=== PATIENT | female | born 1935 | race Caucasian/White ===

== ENCOUNTER 2016-11-22 19:28 | Inpatient (IN) | payer MEDICARE ==
[~2016-11-22] VITALS: Ht 167.6 cm; Wt 65.8 kg
[~2016-11-22 19:28] MED LIST: ALLA266C2 TP; DIVA500T2 PO; DOCU-25 PO; LEVO75TA7 PO; MEGE400O PO; MIRT15TA PO; PANT40TA2 PO; PARO10TA26 PO
--- NOTE | 2016-11-22 19:50 | NUR ---
PT PA FROM [facility] HERE FOR "MAKING FALSE ACCUSATIONS AND STATING I WANT TO " PT AOX3 RR EVEN AND UNLABORED. NO SOB NOTED. NAD NOTED. NO NVD AT THIS TIME. PT GOWNED AND PLACED ON MONITOR WAITING FOR MD BURKETT.
--- NOTE | 2016-11-22 20:10 | NUR ---
LAB AT BEDSIDE FOR BLOOD DRAW
[2016-11-22 20:15] LABS: BASOPHILS % (AUTO) 0.7 % (0.0-2.0); EOSINOPHILS # (AUTO) 0.1 /CMM (0.0-0.7); EOSINOPHILS % (AUTO) 1.7 % (0.0-6.0); HEMATOCRIT 39 % (33-45); HEMOGLOBIN 13.6 g/dL (11.5-14.8); LYMPHOCYTES # (AUTO) 3.7 /CMM (0.8-4.8); LYMPHOCYTES % (AUTO) 51.5 % (20.0-44.0); MEAN CORPUSCULAR HEMOGLOBIN 35 PG (26.0-33.0); MEAN CORPUSCULAR HGB CONC 35 g/dl (31.0-36.0); MEAN CORPUSCULAR VOLUME 100 fL (82-100); MONOCYTES # (AUTO) 0.7 /CMM (0.1-1.30); MONOCYTES % (AUTO) 9.2 % (2.0-12.0); NEUTROPHILS # (AUTO) 2.6 /CMM (1.8-8.9); NEUTROPHILS % (AUTO) 36.9 % (43.0-81.0); PLATELET COUNT (AUTO) 192 /CMM (150-450); RDW COEFFICIENT OF VARIATION 11.4 (11.5-15.0); RED BLOOD CELL COUNT(AUTO) 3.91 MIL/uL (4.0-5.2); WHITE BLOOD COUNT (AUTO) 7.1 K/uL (4.3-11.0)
--- NOTE | 2016-11-22 20:23 | NUR ---
URINE COLLECTED. SENT TO LAB
[2016-11-22 20:31] LABS: ACETAMINOPHEN 5 ug/ml (10-30); ALANINE AMINOTRANSFERASE 10 U/L (12-78); ALBUMIN 3.6 g/dL (3.4-5.0); ALCOHOL, BLOOD < 3 mg/dL (0-0); ALKALINE PHOSPHATASE 83 U/L (46-116); ASPARTATE AMINOTRANSFERASE 13 U/L (15-37); BILIRUBIN,DIRECT 0.1 mg/dL (0.0-0.2); BILIRUBIN,TOTAL 0.5 mg/dL (0.2-1.0); CALCIUM, SERUM 10.2 mg/dL (8.5-10.1); CARBON DIOXIDE 27 mmol/L (21-32); CHLORIDE 106 mmol/L (98-107); CREATININE 0.9 mg/dL (0.6-1.3); GLUCOSE 113 mg/dL (74-106); POTASSIUM 4.2 mmol/L (3.5-5.1); SODIUM SERUM 141 mmol/L (136-145); UREA NITROGEN, BLOOD 15 mg/dL (7-18)
[2016-11-22 20:33] LABS: APPEARANCE,URINE Clear (CLEAR); BILIRUBIN,URINE Negative (NEGATIVE); BLOOD, URINE Moderate Ery/uL (NEGATIVE); COLOR,URINE Yellow (YELLOW); KETONES,URINE Negative (NEGATIVE); LEUKOCYTE ESTERASE ,URINE Small (NEGATIVE); NITRITE, URINE Negative (NEGATIVE); PROTEIN,URINE Negative (NEGATIVE); UGLUCOSE Negative (NEGATIVE)
--- NOTE | 2016-11-22 20:43 | NUR ---
REPORT GIVEN TO MEAGAN MURRAY FOR [facility] BED 219-B
[2016-11-22 20:53] LABS: BACTERIA,URINE Few /HPF (None Seen); RBC,URINE 0-2 /HPF (0-2); SQUAMOUS EPITHELIAL CELL,UR Rare /HPF (None Seen)
--- NOTE | 2016-11-22 21:17 | NUR ---
PT CALM, RELAXED AND NOT AGITATED. RESTING IN BED EASILY AROUSED VERBAL STIMULI
--- NOTE | 2016-11-22 21:17 | NUR ---
Madelyn simon in [facility] - 11/22/16 at 2119 by DOLORES PT CALMED AND RELAXED. RESTING IN BED EASILY AROUSED VERBAL STIMULI
--- NOTE | 2016-11-22 21:36 | NUR ---
PINKY AT BEDSIDE FOR EVAL.
--- NOTE | 2016-11-22 22:06 | NUR ---
PT PLACED ON 5150 PER BRAYDEN.
--- NOTE | 2016-11-22 22:33 | NUR ---
PT TRANSFERED TO [facility] VIA NOAH
[2016-11-22 22:45] VITALS: BP 125/67
[2016-11-22] MEDS ORDERED: MAG HYDROX/AL HYDROX/SIMETH 30 ML UDC PO PRN (23:00)
[2016-11-22] MEDS ORDERED: MAGNESIUM HYDROXIDE 30 ML UDC PO PRN (23:00)
--- NOTE | 2016-11-22 23:00 | NUR ---
ADMITTED 80 Y/O FEMALE WHITE FROM [facility] AND EVALUATED FROM THE ER DUE TO DEPRESSION, UNCONTROLLABLE CRYING, SCREAMING, YELLING AND MAKING FALSE ACCUSATION. PATIENT ADMITTING DX. PSYCHOSIS AND MEDICAL DX. SEIZURE D/O, DEMENTIA, VERTIGO AND ATHEROSCLEROSIS. PATIENT PLACED ON 5150 HOLD GRAVELY DISABLED, BASED ON HOLD, PATIENT IS DEPRESSED, ANXIOUS, RESTLESS, SCREAMING, YELLING, AGITATED, PARANOID, SUSPICIOUS, CRYING UNCONTROLLABLY AND FALSELY ACCUSING STAFF AT THE FACILITY. UPON FACE TO FACE EVALUATION, PATIENT APPEARED ALERT AND ORIENTED X 2-3, CRYING, ANXIOUS, PARANOID, EASILY AGITATED, HYPERVERBAL, ACCUSED STAFF AT THE FACILITY. NO SOB, NO ACUTE DISTRESS, BREATHING EVEN AND UNLABORED, NO S/S OF PAIN AND DISCOMFORT, PATIENT IS COOPERATIVE DURING ADMISSION PROCESS, PATIENT STATED "I DON'T THINK I'M ABLE TO SIGN PAPER WORKS", SNACKS AND DRINKS OFFERED AND APPRECIATED BY THE PATIENT. BELONGINGS AND CONTRABAND INSPECTED AND PLACED ON THE LOCKED CABINET. CN NOTIFIED DR. KATHLEEN TO RECONCILE MEDICATION AND PER DR. KATHLEEN JUST PASS IT ON THE DAY SHIFT. WILL CONTINUE TO MONITOR [id number] FOR SAFETY
[2016-11-23 00:25] VITALS: BP 125/67
[2016-11-23 07:33] LABS: BASOPHILS % (AUTO) 0.3 % (0.0-2.0); EOSINOPHILS # (AUTO) 0.2 /CMM (0.0-0.7); EOSINOPHILS % (AUTO) 3.4 % (0.0-6.0); HEMATOCRIT 37 % (33-45); HEMOGLOBIN 12.9 g/dL (11.5-14.8); LYMPHOCYTES # (AUTO) 2.7 /CMM (0.8-4.8); LYMPHOCYTES % (AUTO) 56.2 % (20.0-44.0); MEAN CORPUSCULAR HEMOGLOBIN 35 PG (26.0-33.0); MEAN CORPUSCULAR HGB CONC 35 g/dl (31.0-36.0); MEAN CORPUSCULAR VOLUME 100 fL (82-100); MONOCYTES # (AUTO) 0.4 /CMM (0.1-1.30); MONOCYTES % (AUTO) 8.4 % (2.0-12.0); NEUTROPHILS # (AUTO) 1.5 /CMM (1.8-8.9); NEUTROPHILS % (AUTO) 31.7 % (43.0-81.0); PLATELET COUNT (AUTO) 173 /CMM (150-450); RDW COEFFICIENT OF VARIATION 12.4 (11.5-15.0); RED BLOOD CELL COUNT(AUTO) 3.72 MIL/uL (4.0-5.2); WHITE BLOOD COUNT (AUTO) 4.8 K/uL (4.3-11.0)
[2016-11-23] MEDS ORDERED: LAMO100T2 PO (07:33)
[2016-11-23] MEDS ORDERED: ACET-868 PO (07:33)
[2016-11-23] MEDS ORDERED: MULT-659 PO (07:33)
[2016-11-23 07:52] LABS: ALBUMIN 3.2 g/dL (3.4-5.0); BILIRUBIN,TOTAL 0.4 mg/dL (0.2-1.0); CALCIUM, SERUM 9.7 mg/dL (8.5-10.1); CREATININE 0.6 mg/dL (0.6-1.3); POTASSIUM 3.6 mmol/L (3.5-5.1); TOTAL PROTEIN, SERUM 6.4 g/dL (6.4-8.2)
[2016-11-23 08:00] VITALS: BP 116/64
[2016-11-23] MEDS ORDERED: ACETAMINOPHEN 325 MG TABLET PO PRN (11:00)
--- NOTE | 2016-11-23 12:33 | NUR ---
Initial discharge plan: Pt. is a resident at [address] [address]. Tel # and will return when stable. Pts daughter Alison, is notified of admission . SW will follow up with MD and pt. and will help form safe and proper discharge.
[2016-11-23] MEDS: LORAZEPAM 0.5 MG TABLET PO PRN ×2 (13:09→20:06)
[2016-11-23] MEDS: ACETAMINOPHEN 325 MG TABLET PO PRN ×2 (13:09→20:06)
[2016-11-23 16:03] VITALS: BP 141/74
[2016-11-23] MEDS: DOCUSATE SODIUM 100 MG CAPSULE PO SCH (17:43)
[2016-11-23] MEDS: PAROXETINE HCL 20 MG TABLET PO SCH (17:55)
[2016-11-23 20:00] VITALS: BP 131/73
[2016-11-23] MEDS: DIVALPROEX SODIUM 500 MG TABLET.DR PO SCH (20:41)
[2016-11-23] MEDS: risperiDONE 0.25 MG TABLET PO SCH (22:07)
[2016-11-24] MEDS: TEMAZEPAM 7.5 MG CAPSULE PO PRN ×2 (01:04→23:37)
[2016-11-24] MEDS: ACETAMINOPHEN 325 MG TABLET PO PRN ×2 (07:04→19:02)
[2016-11-24] MEDS: LORAZEPAM 0.5 MG TABLET PO PRN ×2 (07:04→19:02)
[2016-11-24 08:35] VITALS: BP 120/50
[2016-11-24] MEDS: DOCUSATE SODIUM 100 MG CAPSULE PO SCH ×2 (09:52→17:06)
[2016-11-24] MEDS: MULTIVITAMINS,THERAPEUTIC 1 UDTAB TABLET PO SCH (09:52)
[2016-11-24] MEDS: PAROXETINE HCL 20 MG TABLET PO SCH (09:52)
[2016-11-24] MEDS: DIVALPROEX SODIUM 500 MG TABLET.DR PO SCH ×2 (09:52→20:33)
[2016-11-24] MEDS: LEVOTHYROXINE SODIUM 75 MCG TABLET PO SCH (09:52)
[2016-11-24] MEDS: LamoTRIgine 100 MG TABLET PO SCH (09:52)
[2016-11-24] MEDS: PANTOPRAZOLE 40 MG TABLET.DR PO SCH (09:52)
[2016-11-24 15:51] VITALS: BP 116/59
--- NOTE | 2016-11-24 19:05 | NUR ---
GPS RN: ADMINISTERED TYLENOL 650MG PO FOR C/O NECK PAIN 02/07 AND ATIVAN 0.5MG PO PER PATIENT REQUEST FOR C/O ANXIETY. PATIENT NOTED WITH EPISODES OF CRYING AND GETS EASILY AGITATED AND ANXIOUS, HARD TO REDIRECT. PROVIDED WITH CALM AND SAFE ENVIRONMENT, INSTRUCTED ON RELAXATION. VS STABLE, PATIENT IS NOT IN DISTRESS, ALL NEEDS ATTENDED AND ANTICIPATED, CONTINUE TO MONITOR KOKO ENDORSE TO THE UPCOMING NURSE.
[2016-11-24 20:00] VITALS: BP 107/53
[2016-11-24] MEDS: risperiDONE 0.25 MG TABLET PO SCH (21:40)
[2016-11-25] MEDS: PAROXETINE HCL 20 MG TABLET PO SCH (08:30)
[2016-11-25] MEDS: LEVOTHYROXINE SODIUM 75 MCG TABLET PO SCH (08:30)
[2016-11-25] MEDS: MULTIVITAMINS,THERAPEUTIC 1 UDTAB TABLET PO SCH (08:30)
[2016-11-25] MEDS: DOCUSATE SODIUM 100 MG CAPSULE PO SCH ×2 (08:30→16:27)
[2016-11-25] MEDS: PANTOPRAZOLE 40 MG TABLET.DR PO SCH (08:30)
[2016-11-25] MEDS: DIVALPROEX SODIUM 500 MG TABLET.DR PO SCH ×2 (08:31→20:19)
[2016-11-25] MEDS: LamoTRIgine 100 MG TABLET PO SCH (08:31)
[2016-11-25] MEDS: ACETAMINOPHEN 325 MG TABLET PO PRN (15:42)
[2016-11-25 16:00] VITALS: BP 122/62
[2016-11-25 20:46] VITALS: BP 128/61
[2016-11-25] MEDS: risperiDONE 0.25 MG TABLET PO SCH (21:09)
[2016-11-25] MEDS: TEMAZEPAM 7.5 MG CAPSULE PO PRN (21:52)
[2016-11-26 08:00] VITALS: BP 112/64
[2016-11-26] MEDS: LEVOTHYROXINE SODIUM 75 MCG TABLET PO SCH (08:02)
[2016-11-26] MEDS: MULTIVITAMINS,THERAPEUTIC 1 UDTAB TABLET PO SCH (08:02)
[2016-11-26] MEDS: DOCUSATE SODIUM 100 MG CAPSULE PO SCH ×2 (08:02→16:28)
[2016-11-26] MEDS: DIVALPROEX SODIUM 500 MG TABLET.DR PO SCH ×2 (08:02→20:50)
[2016-11-26] MEDS: PANTOPRAZOLE 40 MG TABLET.DR PO SCH (08:02)
[2016-11-26] MEDS: PAROXETINE HCL 20 MG TABLET PO SCH (08:02)
[2016-11-26] MEDS: LamoTRIgine 100 MG TABLET PO SCH (08:02)
[2016-11-26 16:00] VITALS: BP 108/64
[2016-11-26 21:08] VITALS: BP 120/58
[2016-11-26] MEDS: risperiDONE 0.25 MG TABLET PO SCH (22:12)
[2016-11-26] MEDS: TEMAZEPAM 7.5 MG CAPSULE PO PRN (22:45)
--- NOTE | 2016-11-27 07:16 | NUR ---
GPS RN NOTE: PATIENT IN BE SLEEPING DEEPLY RESPIRATION EVEN NON LABORED VSS STABLE, PATIENT OPEN HER EYES AND CLOSE AGAIN HOLD ALL AM MEDICATIONS AT THIS TIME WILL CONTINUE MONITORING
[2016-11-27] MEDS: PANTOPRAZOLE 40 MG TABLET.DR PO SCH (07:30)
[2016-11-27] MEDS: LEVOTHYROXINE SODIUM 75 MCG TABLET PO SCH (07:30)
[2016-11-27 08:00] VITALS: BP 101/67
[2016-11-27] MEDS: DIVALPROEX SODIUM 500 MG TABLET.DR PO SCH ×2 (09:00→21:41)
[2016-11-27] MEDS: MULTIVITAMINS,THERAPEUTIC 1 UDTAB TABLET PO SCH (09:00)
[2016-11-27] MEDS: LamoTRIgine 100 MG TABLET PO SCH (09:00)
[2016-11-27] MEDS: DOCUSATE SODIUM 100 MG CAPSULE PO SCH ×2 (09:00→16:02)
[2016-11-27] MEDS: PAROXETINE HCL 20 MG TABLET PO SCH (09:00)
--- NOTE | 2016-11-27 09:26 | NUR ---
GPS RN NOTE: PATIENT REMAIN SLEEPING ,BREATHING EVEN NON LABORED, BED IN LOWER POSITION CHECKED VSS WNL 02 96 P 84 B/P103/66 WILL CONTINUE MONITORING
[2016-11-27 16:00] VITALS: BP 114/64
[2016-11-27] MEDS: ACETAMINOPHEN 325 MG TABLET PO PRN (17:33)
--- NOTE | 2016-11-27 19:30 | NUR ---
GPS RN NOTE, RECEIVED PATIENT AWAKE AND IN BED, PATIENT HAS A COMPLAINT OF HEAD ACHE PAIN AT 2 OUT 10 AT THIS TIME. PATIENT IS BEING TREAT WITH ORAL PAIN MEDICATION FOR THIS PAIN. PATIENT IS DISPLAYING NO S/S OF APPARENT DISTRESS AT THIS TIME. PATIENT BREATHING IS UNLABORED WITH EQUAL RISE AND FALL OF THE CHEST. PATIENT IS ALERT AND ORIENTED X 2 ON ROOM AIR WITH A SPO2 96%. PATIENT COMPLIANT WITH MEDICATION, ANXIOUS, COOPERATIVE, CONFUSED AT TIMES, AND NEEDS REORIENTATION. PATIENT DENIES SUICIDE AND HOMICIDAL IDEATIONS AT THIS TIME. PATIENT ASSISTED WITH TURNING AND REPOSITIONING Q2HR AND PRN FOR COMFORT AND CIRCULATION. PATIENT HAS NO NEEDS AT THIS TIME. PATIENT EDUCATED ON THE USE OF THE CALL VILLALOBOS. PATIENT BED SIDE RAILS UP X2 FOR SAFETY, BED IS LOCKED AND LOW WILL CONTINUE TO MONITOR AND MAINTAIN SAFETY.
[2016-11-27 20:00] VITALS: BP 126/62
[2016-11-27] MEDS: risperiDONE 0.25 MG TABLET PO SCH (21:41)
[2016-11-28] MEDS: LamoTRIgine 100 MG TABLET PO SCH (07:50)
[2016-11-28] MEDS: DOCUSATE SODIUM 100 MG CAPSULE PO SCH ×2 (07:50→16:31)
[2016-11-28] MEDS: LORAZEPAM 0.5 MG TABLET PO PRN ×2 (07:50→14:11)
[2016-11-28] MEDS: DIVALPROEX SODIUM 500 MG TABLET.DR PO SCH ×2 (07:50→20:55)
[2016-11-28] MEDS: PAROXETINE HCL 20 MG TABLET PO SCH (07:50)
[2016-11-28] MEDS: MULTIVITAMINS,THERAPEUTIC 1 UDTAB TABLET PO SCH (07:50)
[2016-11-28] MEDS: LEVOTHYROXINE SODIUM 75 MCG TABLET PO SCH (07:59)
[2016-11-28] MEDS: PANTOPRAZOLE 40 MG TABLET.DR PO SCH (07:59)
[2016-11-28 08:00] VITALS: BP 134/63
--- NOTE | 2016-11-28 12:24 | NUR ---
MIRA spoke with pt's daughter, Alison, about pt's placement. Per daughter, pt has 1700 monthly income and would like [place]. MIRA will follow up
--- NOTE | 2016-11-28 15:04 | NUR ---
MIRA faxed a referral to [facility] ([address], [place] [address] and spoke with Amanda. she will be able to come assess the patient tomorrow.
[2016-11-28 16:20] VITALS: BP 131/72
[2016-11-28] MEDS: DIVALPROEX SODIUM 250 MG TABLET.DR PO SCH (16:32)
[2016-11-28 20:00] VITALS: BP 99/47
[2016-11-28 20:23] VITALS: BP 99/47
[2016-11-28] MEDS: risperiDONE 0.25 MG TABLET PO SCH (20:55)
[2016-11-29] MEDS: PANTOPRAZOLE 40 MG TABLET.DR PO SCH (08:30)
[2016-11-29] MEDS: MULTIVITAMINS,THERAPEUTIC 1 UDTAB TABLET PO SCH (08:30)
[2016-11-29] MEDS: DIVALPROEX SODIUM 500 MG TABLET.DR PO SCH ×2 (08:30→21:53)
[2016-11-29] MEDS: LamoTRIgine 100 MG TABLET PO SCH (08:30)
[2016-11-29] MEDS: LEVOTHYROXINE SODIUM 75 MCG TABLET PO SCH (08:30)
[2016-11-29] MEDS: PAROXETINE HCL 20 MG TABLET PO SCH (08:30)
[2016-11-29] MEDS: DOCUSATE SODIUM 100 MG CAPSULE PO SCH ×2 (08:30→16:59)
[2016-11-29 08:58] VITALS: BP 102/56
[2016-11-29] MEDS: DIVALPROEX SODIUM 250 MG TABLET.DR PO SCH (13:09)
--- NOTE | 2016-11-29 15:53 | NUR ---
MIRA faxed a referral to [facility] ([facility]) [address] [place] [address] . Will follow up Addendum: 12/04/16 at 0933 by DAIANA MEYERS Pt. has been accepted, per Sancho from the facility.
[2016-11-29 16:24] VITALS: BP 100/51
[2016-11-29] MEDS: ACETAMINOPHEN 325 MG TABLET PO PRN (17:26)
--- NOTE | 2016-11-29 17:31 | NUR ---
GPS RN: TYLENOL 650 MG ADMINISTERED PO FOR C/O HEADACHE 12/08. NO SS OF DISTRESS, CONTINUE TO MONITOR.
--- NOTE | 2016-11-29 19:40 | NUR ---
GPS RN NOTE, RECEIVED PATIENT AWAKE, RESTING IN BED. NO DISTRESS, NO SOB NOTED AT THIS TIME. PATIENT IS ALERT AND ORIENTED X 2 ON ROOM AIR WITH A SPO2 95%. VERBALLY RESPONSIVE. REORIENTED PATIENT TO REALITY. DENIES SUICIDE IDEATIONS AT THIS TIME. VERBALIZATION OF FEELINGS ENCOURAGED. DENIES ANY PAIN OR DISCOMFORT AT THIS TIME. ALL NEEDS ATTENDED. SAFETY PRECAUTIONS OBSERVED. WILL CONTINUE TO MONITOR.
[2016-11-29 20:00] VITALS: BP 100/50
[2016-11-29] MEDS: risperiDONE 0.25 MG TABLET PO SCH (21:54)
--- NOTE | 2016-11-29 23:30 | NUR ---
PT C/O INABILITY TO SLEEP , SLEEPING MEDICATION OFFERED, PT REFUSED X 3. KEPT PT COMFORTABLE. ALL NEEDS ATTENDED. WILL CONTINUE TO MONITOR.
[2016-11-30] MEDS: LORAZEPAM 0.5 MG TABLET PO PRN ×2 (03:34→09:22)
--- NOTE | 2016-11-30 03:34 | NUR ---
PT VERY ANXIOUS AT THIS TIME. CRYING AND SCREAMING AT THIS TIME. NON PHARMACOLOGICAL INTERVENTION RENDERED INEFFECTIVE, PT REQUESTED FOR ATIVAN. ATIVAN GIVEN ORDERED. BP : 118/64 AT THIS TIME. WILL CONT TO MONITOR.
[2016-11-30 08:00] VITALS: BP 118/64
--- NOTE | 2016-11-30 09:30 | NUR ---
GPS/RN ATIVAN PO/PRN GIVEN FOR ANXIETY
[2016-11-30] MEDS: ACETAMINOPHEN 325 MG TABLET PO PRN ×2 (09:35→22:12)
[2016-11-30] MEDS: MULTIVITAMINS,THERAPEUTIC 1 UDTAB TABLET PO SCH (09:36)
[2016-11-30] MEDS: PANTOPRAZOLE 40 MG TABLET.DR PO SCH (09:36)
[2016-11-30] MEDS: LamoTRIgine 100 MG TABLET PO SCH (09:36)
[2016-11-30] MEDS: LEVOTHYROXINE SODIUM 75 MCG TABLET PO SCH (09:36)
[2016-11-30] MEDS: DIVALPROEX SODIUM 500 MG TABLET.DR PO SCH ×2 (09:36→20:05)
[2016-11-30] MEDS: DOCUSATE SODIUM 100 MG CAPSULE PO SCH ×2 (09:36→16:11)
[2016-11-30] MEDS: PAROXETINE HCL 20 MG TABLET PO SCH (09:36)
[2016-11-30] MEDS: DIVALPROEX SODIUM 250 MG TABLET.DR PO SCH (12:39)
[2016-11-30 16:00] VITALS: BP 110/62
--- NOTE | 2016-11-30 19:45 | NUR ---
RN OPENING NOTES RECEIVED REPORT FROM TJ RNMCKINLEY. FOUND Pt AWAKE IN BED. NO S/S OF ACUTE DISTRESS OR SOB NOTED. Pt IS A/OX2, MED COMPLIANT. SAFETY MEASURES IN PLACE. BED, LOW, LOCKED, HOB ELEVATED, & SIDE RAILS UP. WILL CONTINUE TO MONITOR Pt THROUGHOUT THE NIGHT FOR SAFETY.
[2016-11-30 20:00] VITALS: BP 133/66
--- NOTE | 2016-11-30 20:00 | NUR ---
RN NOTES Pt SUDDENLY STARTED CRYING OUT THAT SHE HAD A STOMACH ACHE. GAVE Pt PRN MAALOX FOR HER STOMACH PROBLEM. REDIRECTED Pt. GOT Pt TO CALM DOWN.
[2016-11-30] MEDS: risperiDONE 0.25 MG TABLET PO SCH (20:05)
[2016-11-30] MEDS: TEMAZEPAM 7.5 MG CAPSULE PO PRN (20:06)
--- NOTE | 2016-11-30 20:10 | NUR ---
RN NOTES ADMINISTERED RESTORIL 7.5MG FOR Pt's AGITATION, AND TO HELP Pt GET SOME REST DURING THE NIGHT. WILL CONTINUE TO MONITOR Pt THROUGHOUT THE NIGHT FOR SAFETY.
--- NOTE | 2016-11-30 22:00 | NUR ---
RN NOTES Pt WOKE UP AGAIN CRYING THAT SHE HAD A STOMACH ACHE. ADMINISTERED TYLENOL 650MG FOR THE PAIN. HELPED Pt CALM DOWN UNTIL SHE FELL ASLEEP.
--- NOTE | 2016-12-01 06:36 | NUR ---
RN CLOSING NOTES NO SIGNIFICANT CHANGES DURING THE NIGHT. NO S/S OF ACUTE DISTRESS OR SOB NOTED. ALL NEEDS MET AND ATTENDED TO. SAFETY MEASURES CARRIED OUT. WILL ENDORSE TO DAYSHIFT RN FOR Pt's INDER.
[2016-12-01 08:00] VITALS: BP 103/52
[2016-12-01] MEDS: MULTIVITAMINS,THERAPEUTIC 1 UDTAB TABLET PO SCH (08:41)
[2016-12-01] MEDS: LamoTRIgine 100 MG TABLET PO SCH (08:41)
[2016-12-01] MEDS: PAROXETINE HCL 20 MG TABLET PO SCH (08:41)
[2016-12-01] MEDS: DIVALPROEX SODIUM 500 MG TABLET.DR PO SCH ×2 (08:42→21:43)
[2016-12-01] MEDS: LEVOTHYROXINE SODIUM 75 MCG TABLET PO SCH (08:42)
[2016-12-01] MEDS: PANTOPRAZOLE 40 MG TABLET.DR PO SCH (08:42)
[2016-12-01] MEDS: DOCUSATE SODIUM 100 MG CAPSULE PO SCH ×2 (08:42→17:25)
[2016-12-01] MEDS: DIVALPROEX SODIUM 250 MG TABLET.DR PO SCH (12:05)
[2016-12-01 20:00] VITALS: BP 130/68
[2016-12-01] MEDS: TEMAZEPAM 7.5 MG CAPSULE PO PRN (21:43)
[2016-12-01] MEDS: risperiDONE 0.25 MG TABLET PO SCH (21:43)
[2016-12-02] MEDS: LORAZEPAM 0.5 MG TABLET PO PRN (00:40)
[2016-12-02 08:00] VITALS: BP 139/83
[2016-12-02] MEDS: MULTIVITAMINS,THERAPEUTIC 1 UDTAB TABLET PO SCH (08:14)
[2016-12-02] MEDS: PAROXETINE HCL 20 MG TABLET PO SCH (08:14)
[2016-12-02] MEDS: PANTOPRAZOLE 40 MG TABLET.DR PO SCH (08:14)
[2016-12-02] MEDS: DOCUSATE SODIUM 100 MG CAPSULE PO SCH ×2 (08:14→16:35)
[2016-12-02] MEDS: LamoTRIgine 100 MG TABLET PO SCH (08:14)
[2016-12-02] MEDS: LEVOTHYROXINE SODIUM 75 MCG TABLET PO SCH (08:14)
[2016-12-02] MEDS: DIVALPROEX SODIUM 500 MG TABLET.DR PO SCH ×2 (08:14→21:45)
[2016-12-02] MEDS: DIVALPROEX SODIUM 250 MG TABLET.DR PO SCH (12:13)
[2016-12-02 16:10] VITALS: BP 132/73
--- NOTE | 2016-12-02 19:15 | NUR ---
GPS RN OPENING NOTES: RECEIVED PT AWAKE AND IS LAYING DOWN IN HER BED. NO S/S OR COMPLAINTS OF PAIN AT THIS TIME. PT IS DISPLAYING NO S/S OF APPARENT DISTRESS AT THIS TIME. PT BREATHING IS UNLABORED W/ EQUAL RISE AND FALL OF THE CHEST. PT IS A/O X 2-3 ON ROOM AIR WITH SPO2 94%. PT IS MED COMPLIANT. PT DENIES SUICIDE IDEATIONS OR HOMICIDAL IDEATIONS AT THIS TIME. PT HAS NO NEEDS AT THIS TIME. PT EDUCATED ON THE USE OF THE CALL VILLALOBOS. SIDE RAILS X2 UP FOR SAFETY. BED KEPT IN LOCKED AND LOWEST POSITION. WILL CONTINUE TO MONITOR AND MAINTAIN SAFETY.
[2016-12-02 20:56] VITALS: BP 109/59
[2016-12-02] MEDS: risperiDONE 0.25 MG TABLET PO SCH (21:45)
[2016-12-02] MEDS: ACETAMINOPHEN 325 MG TABLET PO PRN (22:33)
--- NOTE | 2016-12-02 22:33 | NUR ---
GPS RN NOTES: PT COMPLAINED OF A MILD HEADACHE AND ASKED FOR SOMETHING. PT RECEIVED TYLENOL 650 MG PO. WILL CONTINUE TO MONITOR PT.
[2016-12-03] MEDS: ACETAMINOPHEN 325 MG TABLET PO PRN (05:45)
--- NOTE | 2016-12-03 05:45 | NUR ---
GPS RN NOTE: PT COMPLAINED OF A HEADACHE AND REQUESTED FOR TYLENOL. PT WAS GIVEN TYLENOL 650MG AND SHE ALSO HAD A CUP OF APPLE SAUCE. WILL CONTINUE TO MONITOR PT.
--- NOTE | 2016-12-03 07:03 | NUR ---
GPS RN CLOSING NOTES: ALL NEEDS WERE ATTENDED AND ANTICIPATED FOR. PT KEPT CLEAN, DRY, AND COMFORTABLE. NO SIGNS OR SYMPTOMS OF DISTRESS NOTED AT THIS TIME. PT IS IN BED ASLEEP. CALL VILLALOBOS WITHIN PT'S REACH. BED KEPT IN LOCKED, LOWEST POSITION, AND SIDE RAILS UP. WILL ENDORSE TO AM NURSE FOR INDER.
[2016-12-03] MEDS: LEVOTHYROXINE SODIUM 75 MCG TABLET PO SCH (07:30)
[2016-12-03] MEDS: PANTOPRAZOLE 40 MG TABLET.DR PO SCH (07:30)
[2016-12-03 08:00] VITALS: BP 120/60
[2016-12-03] MEDS: DIVALPROEX SODIUM 500 MG TABLET.DR PO SCH ×2 (09:05→20:08)
[2016-12-03] MEDS: PAROXETINE HCL 20 MG TABLET PO SCH (09:05)
[2016-12-03] MEDS: DOCUSATE SODIUM 100 MG CAPSULE PO SCH ×2 (09:05→17:37)
[2016-12-03] MEDS: MULTIVITAMINS,THERAPEUTIC 1 UDTAB TABLET PO SCH (09:05)
[2016-12-03] MEDS: LamoTRIgine 100 MG TABLET PO SCH (09:05)
[2016-12-03] MEDS: DIVALPROEX SODIUM 250 MG TABLET.DR PO SCH (13:52)
[2016-12-03 16:29] VITALS: BP 118/64
[2016-12-03 20:58] VITALS: BP 108/54
[2016-12-03 21:01] VITALS: BP 108/54
[2016-12-03] MEDS: risperiDONE 0.25 MG TABLET PO SCH (21:17)
[2016-12-03] MEDS: TEMAZEPAM 7.5 MG CAPSULE PO PRN (23:33)
[2016-12-04] MEDS: PANTOPRAZOLE 40 MG TABLET.DR PO SCH (07:30)
[2016-12-04] MEDS: LEVOTHYROXINE SODIUM 75 MCG TABLET PO SCH (07:30)
[2016-12-04 08:00] VITALS: BP 112/53
[2016-12-04] MEDS: DOCUSATE SODIUM 100 MG CAPSULE PO SCH (09:31)
[2016-12-04] MEDS: PAROXETINE HCL 20 MG TABLET PO SCH (09:31)
[2016-12-04] MEDS: DIVALPROEX SODIUM 500 MG TABLET.DR PO SCH (09:31)
[2016-12-04] MEDS: LamoTRIgine 100 MG TABLET PO SCH (09:32)
[2016-12-04] MEDS: MULTIVITAMINS,THERAPEUTIC 1 UDTAB TABLET PO SCH (09:32)
--- NOTE | 2016-12-04 09:36 | NUR ---
SW attempted to speak with daughter, Alison, to notify her of pt's discharge and the accepting facility and after four attempts, she isn't available and voicemail is full. SW called pt's son, Mario Alberto [phone], he picked up but hang up after social service agency director asked if it was Mario Alberto. SW called again and had to leave a voicemail, asking for a return phone call to discuss discharge. Will follow up.
--- NOTE | 2016-12-04 09:48 | NUR ---
After many attempts, MIRA spoke with daughter, Alison, and she is agreeing with the discharge plan.
[2016-12-04] MEDS: DIVALPROEX SODIUM 250 MG TABLET.DR PO SCH (13:57)
--- NOTE | 2016-12-04 15:30 | NUR ---
SUPERVISOR [employer] NOTE :PATIENT ALERT ,VS STABLE ,DENIES SI/HI/AVH. CALLED WITH DISCHARGE ORDERS .PATIENT SEEN BY WITH DISCHARGE ORDERS ALL ORDERS CARRIED OUT ,ALL BELONGINGS RETURNED TO PATIENT ,REPORT GIVEN TO IJEOMA BRAUN IN [facility] . PATIENT DISCHARGED WITH AMBULANCE.
== END 2016-12-04 15:30 | DRG 885 ==
LOC: ER 19:34 → GPS 21:54
PROVIDERS: ADMIT Psychiatry & Neurology Psychiatry; ATTEND Family Medicine
DX: F31.9 Bipolar disorder, unspecified (principal); E44.1 Mild protein-calorie malnutrition; Z68.23 Body mass index [BMI] 23.0-23.9, adult; F03.90 Unspecified dementia, unspecified severity, without behavioral disturbance, psychotic disturbance, mood disturbance, and anxiety; E03.9 Hypothyroidism, unspecified; F29 Unspecified psychosis not due to a substance or known physiological condition; G40.909 Epilepsy, unspecified, not intractable, without status epilepticus; K21.9 Gastro-esophageal reflux disease without esophagitis; K59.09 Other constipation; Z73.6 Limitation of activities due to disability; M85.80 Other specified disorders of bone density and structure, unspecified site; E88.09 Other disorders of plasma-protein metabolism, not elsewhere classified; Z79.899 Other long term (current) drug therapy
CPT/HCPCS: 36415; 80048-TC; 80053-TC; 80076-TC; 80164-TC; 80305; 81000-TC; 85025-TC; 87081-TC; A4606; G0480; Z7610

== ENCOUNTER 2018-10-18 01:56 | Inpatient (IN) | payer MEDICARE, MEDICAID ==
[~2018-10-18] VITALS: Ht 160 cm; Wt 49.9 kg
[~2018-10-18 01:56] MED LIST changes: +ACET-868 PO; -ALLA266C2 TP; -DIVA500T2 PO; +DOCU-141 PO; -DOCU-25 PO; -MEGE400O PO; -MIRT15TA PO; +MULT-659 PO; -PARO10TA26 PO
--- NOTE | 2018-10-18 02:05 | NUR ---
PT BIBPA FOR ALTERED MENTAL STATUS/UTI X 2 WEEKS. PT NON-VERBAL AT THE MOMENT. PT AXO1. RESPIRATIONS EVEN AND UNLABORED. PT PUT ON THE BUTTON RECLAIMER AND PULSE OX.
[2018-10-18 02:48] LABS: BASOPHILS % (AUTO) 0.4 % (0.0-2.0); HEMATOCRIT 37 % (33-45); HEMOGLOBIN 12.7 g/dL (11.5-14.8); LYMPHOCYTES # (AUTO) 2.7 /CMM (0.8-4.8); LYMPHOCYTES % (AUTO) 34.3 % (20.0-44.0); MEAN CORPUSCULAR HGB CONC 34 g/dl (31.0-36.0); MEAN CORPUSCULAR VOLUME 105 fL (82-100); MONOCYTES # (AUTO) 0.7 /CMM (0.1-1.30); MONOCYTES % (AUTO) 9.4 % (2.0-12.0); NEUTROPHILS # (AUTO) 4.3 /CMM (1.8-8.9); NEUTROPHILS % (AUTO) 54.9 % (43.0-81.0); PLATELET COUNT (AUTO) 325 /CMM (150-450); RED BLOOD CELL COUNT(AUTO) 3.54 MIL/uL (4.0-5.2); WHITE BLOOD COUNT (AUTO) 7.8 K/uL (4.3-11.0)
--- NOTE | 2018-10-18 02:56 | NUR ---
EKG AT BEDSIDE.
--- NOTE | 2018-10-18 03:00 | NUR ---
XRAY AT BEDSIDE.
[2018-10-18 03:03] LABS: ALANINE AMINOTRANSFERASE 16 U/L (12-78); ALBUMIN 2.7 g/dL (3.4-5.0); ALKALINE PHOSPHATASE 68 U/L (46-116); ASPARTATE AMINOTRANSFERASE 9 U/L (15-37); BILIRUBIN,DIRECT 0.1 mg/dL (0.0-0.2); BILIRUBIN,TOTAL 0.5 mg/dL (0.2-1.0); CALCIUM, SERUM 11.1 mg/dL (8.5-10.1); CARBON DIOXIDE 30 mmol/L (21-32); CHLORIDE 109 mmol/L (98-107); CREATININE 0.5 mg/dL (0.6-1.3); GLUCOSE 105 mg/dL (74-106); POTASSIUM 4.2 mmol/L (3.5-5.1); SODIUM SERUM 146 mmol/L (136-145); TOTAL PROTEIN, SERUM 7.2 g/dL (6.4-8.2); UREA NITROGEN, BLOOD 37 mg/dL (7-18)
[2018-10-18 03:13] LABS: APPEARANCE,URINE Turbid (CLEAR); BILIRUBIN,URINE Negative (NEGATIVE); BLOOD, URINE Small Ery/uL (NEGATIVE); COLOR,URINE Yellow (YELLOW); KETONES,URINE Trace (NEGATIVE); LEUKOCYTE ESTERASE ,URINE Large (NEGATIVE); NITRITE, URINE Negative (NEGATIVE); PROTEIN,URINE >=300 mg/dl (NEGATIVE); UGLUCOSE Negative (NEGATIVE)
--- NOTE | 2018-10-18 03:23 | NUR ---
PT TAKEN TO CT.
[2018-10-18 03:29] LABS: RBC,URINE 0-2 /HPF (0-2)
[2018-10-18 03:30] LABS: BACTERIA,URINE None seen /HPF (None Seen); SQUAMOUS EPITHELIAL CELL,UR Few /HPF (None Seen); TRIPLE PHOSPHATE CRYSTAL,UR Few /HPF (None Seen); URINE AMORPHOUS URATE Few /HPF (None Seen); WBC,URINE 51-80 /HPF (0-3)
[2018-10-18] MEDS ORDERED: IV NS 0.9% 1,000 ML BAG IV ONE (03:30)
--- NOTE | 2018-10-18 03:35 | NUR ---
PT RETURNED FROM CT.
[2018-10-18] MEDS ORDERED: MEROPENEM 1 G VIAL IV ONE (03:48)
[2018-10-18] MEDS ORDERED: MEROPENEM 1,000 MG in IV NS 0.9% 100 ML IV ONE (04:00)
--- NOTE | 2018-10-18 04:05 | NUR ---
[place] LEE SPEAKING TO DR. WESTON REGARDING ADMISSION.
--- NOTE | 2018-10-18 04:08 | NUR ---
CALLED RN SUP FOR TELE BED.
--- NOTE | 2018-10-18 04:11 | NUR ---
NURSING SUP CALLED. PT GOING TO 112 BED 2.
[2018-10-18] MEDS ORDERED: Z GUARD REMEDY 2 OZ OINT TP PRN (04:30)
[2018-10-18] MEDS ORDERED: ONDANSETRON HCL/PF 4 MG/2 ML VIAL IVP PRN (04:30)
[2018-10-18] MEDS ORDERED: MAGNESIUM HYDROXIDE 30 ML UDC PO PRN (04:30)
[2018-10-18] MEDS ORDERED: ACETAMINOPHEN 325 MG TABLET PO PRN (04:30)
[2018-10-18] MEDS ORDERED: MAG HYDROX/AL HYDROX/SIMETH 30 ML UDC PO PRN (04:30)
--- NOTE | 2018-10-18 04:30 | NUR ---
REPORT GIVEN TO MEAGAN ASTUDILLO.
[2018-10-18 05:00] VITALS: BP 142/71
--- NOTE | 2018-10-18 05:08 | NUR ---
PT TRANSFERRED TO BED 112-1 PER ACLS PROTOCOL.
[2018-10-18] MEDS ORDERED: ENOXAPARIN SODIUM 40 MG/0.4 ML DISP.SYRIN SQ ONE (05:30)
--- NOTE | 2018-10-18 05:47 | NUR ---
BOILER CONTROL ROOM OPERATOR NOTES RECEIVED ON STRETCHER . PT A/O X 1. ON TELE MONITOR SR. ON ROOM AIR NO RESPIRATORY DISTRESS NOTED. IV ACCESS ON RIGHT WRIST AND LFA G20 PATENT AND INTACT. WOUND ASSESSMENT DONE. PICTURES TAKEN AND PLACED IN CHART. NURSING SWALLOW EVALUATION DONE. WILL NOTIFY COAL TRAM DRIVER.
--- NOTE | 2018-10-18 05:57 | NUR ---
E MERCHANT NOTES WILL F/U WITH MD Rutherford GIVE LOVENOX APPT OF 36.9
[2018-10-18] MEDS: IV NS 0.9% 1,000 ML IV PRN (06:05)
--- NOTE | 2018-10-18 06:30 | NUR ---
FILTER PRESS PUMPER NOTES UNABLE TO SAY PNA AND FLU VACCINATION STATUS. NO HEALTH HISTORY PAPERS PROVIDED BY EMT PER ER NURSE
--- NOTE | 2018-10-18 07:15 | NUR ---
SWITCHER NOTES NO ACUTE CHANGES NOTED DURING THE SHIFT. PROVIDED COMFORT AND SAFETY. WILL ENDORSE TO THE AM NURSE FOR CONTINUITY OF CARE.
--- NOTE | 2018-10-18 07:20 | NUR ---
KELP GATHERER NOTE RECEIVED REPORT FROM PM NURSE.PATIENT AXOX2,CYPRIOT SPEAKING,UNDERSTAND POLISH.NO SOB NO DISTRESS NOTED AT THIS TIME.NO PAIN.ON TELE MONITOR SR WITH HR 82.IV ON RW#20 AND LFA#20 WITH IVF NS @50ML/HR.BED IS LOW AND IN LOCKED POSITION.CALL LIGHT IN REACH.SRX3.BED ALARM ON .WILL CONTINUE TO MONITOR.
[2018-10-18] MEDS: LEVOTHYROXINE SODIUM 75 MCG TABLET PO SCH (07:53)
[2018-10-18] MEDS: PANTOPRAZOLE 40 MG TABLET.DR PO SCH (07:53)
[2018-10-18 08:00] VITALS: BP 109/62
[2018-10-18] MEDS: DOCUSATE SODIUM 100 MG CAPSULE PO SCH ×2 (08:50→16:59)
[2018-10-18] MEDS: MULTIVIT W/MINERALS 1 TAB TABLET PO SCH (08:50)
[2018-10-18] MEDS: MEROPENEM 1 G in IV NS 0.9% 100 ML IV SCH ×2 (11:06→21:10)
[2018-10-18] MEDS ORDERED: LORAZEPAM INJ 2 MG/ML VIAL IV PRN (14:00)
[2018-10-18] MEDS: HYDROCODONE/APAP 5/325MG 1 EACH TABLET PO PRN (15:00)
[2018-10-18] MEDS ORDERED: LINA145C PO (15:22)
[2018-10-18] MEDS ORDERED: LAMO100T PO (15:22)
[2018-10-18] MEDS ORDERED: DIVA-76 PO (15:22)
[2018-10-18] MEDS ORDERED: PARO40TA4 PO (15:22)
[2018-10-18] MEDS ORDERED: DIVA-78 PO (15:22)
[2018-10-18] MEDS ORDERED: OLAN15TA3 PO (15:22)
--- NOTE | 2018-10-18 15:22 | NUR ---
MERCANTILE AGENT/MED RECON HOME MEDICATION INFO UPDATED. CHARGE NURSE IFTIKHAR TARANGO.
[2018-10-18 16:00] VITALS: BP 126/74
[2018-10-18] MEDS ORDERED: Medication Not On Formulary EA (Linaclotide (Linzess) 145 MCG) PO SCH (16:00)
[2018-10-18] MEDS ORDERED: MEROPENEM 500 MG in IV NS 0.9% 50 ML IV SCH (16:00)
--- NOTE | 2018-10-18 16:00 | NUR ---
MS RN NOTE SEEN BY ,UPDATED ABOUT PATIENT CONDITION WITH LABS,NOTIFIED THAT PATIENT HAS DEVIATION IN MOUTH WHILE SLEEPING,BUT NOT WHILE AWAKE.WILL CONTINUE TO MONITOR PER DOCTOR.OK TO PLACE ON PUREE DIET .CANCELL NPO.WILL CONTINUE TO MONITOR.
--- NOTE | 2018-10-18 16:09 | NUR ---
MS RN NOTE RECEIVED MED LIST FROM [facility] AND [facility],MEDRECON NURSE ULISES MADE AWARE. MADE AWARE.SPOKE RESPONSIBLE GREEN PARTY MARISABEL MYRICK TO GET INFORMATION AND GIVE INFORMATION FROM MICHAEL FROM [facility] AND [facility].
[2018-10-18] MEDS: LamoTRIgine 100 MG TABLET PO SCH (16:59)
[2018-10-18] MEDS: OLANZAPINE 5 MG TABLET PO SCH (16:59)
[2018-10-18] MEDS: PAROXETINE HCL 20 MG TABLET PO SCH (16:59)
[2018-10-18] MEDS ORDERED: DIVALPROEX SODIUM 500 MG TABLET.DR PO SCH (17:00)
[2018-10-18] MEDS: DIVALPROEX SODIUM 125 MG CAP.SPRINK PO SCH (17:12)
--- NOTE | 2018-10-18 19:16 | NUR ---
NE[facility]HB[facility]HOOD [facility]ICE C[facility] DIRECTOR CLOSING NOTE PATIENT AXOX2,ERITREAN SPEAKING,UNDERSTAND GABONESE.NO SOB NO DISTRESS NOTED AT THIS TIME.NO PAIN.IV ON RW#20 AND LFA#20 WITH IVF NS @50ML/HR.BED IS LOW AND IN LOCKED POSITION.CALL LIGHT IN REACH.SRX3.BED ALARM ON .OK TO GIVE LOVENOX PER .MADE AWARE ABOUT APTT RESULT.PM NURSE MADE AWARE.WILL ENDORSE TO PM NURSE FOR INDER.
--- NOTE | 2018-10-18 19:27 | NUR ---
MS RN NOTES RECEIVED PT ON BED. A/O X 1. ON ROOM AIR NO RESPIRATORY DISTRESS NOTED. ON F/C DRAINING YELLOW URINE. IV ACCESS WITH NS @ RUNNING @ 50CC/HR, PATENT AND INTACT. HEAD OF BED ELEVATED. SIDE RAILS UP. CALL LIGHT WITHIN REACH. BED ALARM ON. WILL CONTINUE TO MONITOR PT CLOSELY.
[2018-10-18 20:00] VITALS: BP 104/53
[2018-10-19 04:00] VITALS: BP_SYST 113; BP_SYST 123; BP_DIAS 56; BP_DIAS 59
[2018-10-19] MEDS: IV NS 0.9% 1,000 ML IV PRN (04:07)
--- NOTE | 2018-10-19 04:40 | NUR ---
MS RN NOTES PT REFUSING DVT PUMPS. PT AGITATED WHEN PUTTING DVT PUMPS. CHARGE NURSE INFORMED.
[2018-10-19 06:22] LABS: BASOPHILS % (AUTO) 0.4 % (0.0-2.0); EOSINOPHILS % (AUTO) 0.4 % (0.0-6.0); HEMATOCRIT 34 % (33-45); HEMOGLOBIN 11.7 g/dL (11.5-14.8); LYMPHOCYTES # (AUTO) 2.3 /CMM (0.8-4.8); LYMPHOCYTES % (AUTO) 34.7 % (20.0-44.0); MEAN CORPUSCULAR HGB CONC 34 g/dl (31.0-36.0); MEAN CORPUSCULAR VOLUME 107 fL (82-100); MONOCYTES # (AUTO) 0.8 /CMM (0.1-1.30); MONOCYTES % (AUTO) 11.1 % (2.0-12.0); NEUTROPHILS # (AUTO) 3.6 /CMM (1.8-8.9); NEUTROPHILS % (AUTO) 53.4 % (43.0-81.0); PLATELET COUNT (AUTO) 281 /CMM (150-450); WHITE BLOOD COUNT (AUTO) 6.8 K/uL (4.3-11.0)
[2018-10-19 06:26] LABS: CALCIUM, SERUM 9.9 mg/dL (8.5-10.1); CARBON DIOXIDE 27 mmol/L (21-32); CHLORIDE 113 mmol/L (98-107); CREATININE 0.5 mg/dL (0.6-1.3); GLUCOSE 96 mg/dL (74-106); MAGNESIUM 1.9 mg/dL (1.8-2.4); PHOSPHORUS 2.3 mg/dL (2.5-4.9); POTASSIUM 4.2 mmol/L (3.5-5.1); SODIUM SERUM 148 mmol/L (136-145); UREA NITROGEN, BLOOD 30 mg/dL (7-18)
[2018-10-19 06:27] LABS: CHOLESTEROL 133 mg/dL (<200); HDL CHOLESTEROL 43 mg/dL (40-60); LDL 83 mg/dL (0-99); TRIGLYCERIDES 70 mg/dL (30-150)
--- NOTE | 2018-10-19 07:00 | NUR ---
RN AM SHIFT NOTE PATIENT IN BED RESPONSIVE TO STIMULI, NON VERBAL, MUMMBLING. IV PATENTS AND INTACT, BED IN LOW POSITION AND SAFETY PRECAUTIONS IN PLACE. CALL LIGHT WITHIN REACH VITALS WNL . CONTINUE TO MONTIOR PATIENT.
[2018-10-19 07:13] LABS: LYMPHOCYTES % (MANUAL) 39 % (16-48); MONOCYTES % (MANUAL) 4 % (0-11.0); NEUTROPHILS % (MANUAL) 57 (42-76)
--- NOTE | 2018-10-19 07:18 | NUR ---
MS RN NOTES NO ACUTE CHANGES NOTED DURING THE SHIFT. PROVIDED COMFORT AND SAFETY. WILL ENDORSE TO THE AM NURSE FOR CONTINUITY OF CARE.
[2018-10-19] MEDS: LEVOTHYROXINE SODIUM 75 MCG TABLET PO SCH (07:30)
[2018-10-19] MEDS: PANTOPRAZOLE 40 MG TABLET.DR PO SCH (07:30)
[2018-10-19 08:00] VITALS: BP 115/59
[2018-10-19] MEDS: OLANZAPINE 5 MG TABLET PO SCH ×2 (08:54→16:28)
[2018-10-19] MEDS: DOCUSATE SODIUM 100 MG CAPSULE PO SCH ×2 (08:54→16:28)
[2018-10-19] MEDS: DIVALPROEX SODIUM 250 MG TABLET.DR PO SCH ×2 (08:54→14:15)
[2018-10-19] MEDS: LamoTRIgine 100 MG TABLET PO SCH (08:54)
[2018-10-19] MEDS: MULTIVIT W/MINERALS 1 TAB TABLET PO SCH (08:55)
[2018-10-19] MEDS: PAROXETINE HCL 20 MG TABLET PO SCH (09:06)
[2018-10-19] MEDS: ENOXAPARIN SODIUM 40 MG/0.4 ML DISP.SYRIN SQ SCH (09:09)
[2018-10-19] MEDS: MEROPENEM 1 G in IV NS 0.9% 100 ML IV SCH ×2 (10:24→21:02)
[2018-10-19] MEDS ORDERED: NEUTRA PHOS 1 POWD.PACKET PO ONE (10:30)
[2018-10-19 12:00] VITALS: BP 112/68
[2018-10-19 16:00] VITALS: BP 117/43
[2018-10-19] MEDS: DIVALPROEX SODIUM 125 MG CAP.SPRINK PO SCH (16:28)
[2018-10-19 20:00] VITALS: BP 128/62
--- NOTE | 2018-10-19 20:39 | NUR ---
MS RN NOTES TEMPERATURE OF 100.6, PT GIVEN TYLENOL. COOLING MEASURES DONE. WILL MONITOR PT TEMPT CLOSELY.
[2018-10-20 04:00] VITALS: BP 134/67
[2018-10-20 06:32] LABS: BASOPHILS % (AUTO) 0.4 % (0.0-2.0); EOSINOPHILS % (AUTO) 0.5 % (0.0-6.0); HEMATOCRIT 32 % (33-45); LYMPHOCYTES # (AUTO) 1.6 /CMM (0.8-4.8); LYMPHOCYTES % (AUTO) 25.5 % (20.0-44.0); MEAN CORPUSCULAR HGB CONC 35 g/dl (31.0-36.0); MEAN CORPUSCULAR VOLUME 105 fL (82-100); MONOCYTES # (AUTO) 0.8 /CMM (0.1-1.30); MONOCYTES % (AUTO) 13.5 % (2.0-12.0); NEUTROPHILS # (AUTO) 3.8 /CMM (1.8-8.9); NEUTROPHILS % (AUTO) 60.1 % (43.0-81.0); PLATELET COUNT (AUTO) 243 /CMM (150-450); RED BLOOD CELL COUNT(AUTO) 3.02 MIL/uL (4.0-5.2); WHITE BLOOD COUNT (AUTO) 6.3 K/uL (4.3-11.0)
--- NOTE | 2018-10-20 07:00 | NUR ---
MS RN INITIAL NOTES RECEIVED PT IN BED, A/OX1. UNABLE TO MAKE NEEDS KNOWN. ON 2L NC. CRYING INTERMITTENTLY. PT IS CONTRACTED WITH PITTING EDEMA ON LEFT LOWER LEG.OFFLOADED WITH PILLOWS. SEEN BY CHAITANYA WOUND NURSE. F/C DRAINING TURBID YELLOW URINE. SYMMETRICAL NON LABORED BREATHING NOTED. BED IN LOCKED/LOWEST POSITION. CALL LIGHT IN REACH. WILL CONT TO MONITOR.
[2018-10-20 07:05] LABS: CALCIUM, SERUM 9.9 mg/dL (8.5-10.1); CARBON DIOXIDE 29 mmol/L (21-32); CHLORIDE 111 mmol/L (98-107); CREATININE 0.5 mg/dL (0.6-1.3); GLUCOSE 119 mg/dL (74-106); MAGNESIUM 1.9 mg/dL (1.8-2.4); PHOSPHORUS 2.6 mg/dL (2.5-4.9); POTASSIUM 4.2 mmol/L (3.5-5.1); SODIUM SERUM 148 mmol/L (136-145); UREA NITROGEN, BLOOD 19 mg/dL (7-18)
--- NOTE | 2018-10-20 07:26 | NUR ---
MS RN NOTES NO ACUTE CHANGES NOTED DURING THE SHIFT. PROVIDED COMFORT AND SAFETY. WILL ENDORSE TO THE AM NURSE FOR CONTINUITY OF CARE.
[2018-10-20 08:00] VITALS: BP 143/64
--- NOTE | 2018-10-20 08:12 | NUR ---
WOUND CARE CONSULT: PT PRESENTS WITH SEVERE RT LOWER EXTREMITY CONTRACTURE, SACRAL DEEP TISSUE INJURY (INTACT) WITH SACRAL SCARRING, RT EAR INTACT DEEP TISSUE INJURY, RT FOOT 4+ PITTING EDEMA, ALL PRESENT ON ADMISSION. RECOMMENDATIONS MADE FOR SKIN PROTECTION AND WOUND CARE. DISCUSSED WITH NURSING STAFF. ISOFLEX LOW AIRLOSS BED TO BE PLACED. CURRENT VENKATESH SCORE IS 12. HOMERO SORENSON NOTED. WILL SEE PRN. CRISOSTOMO IN AGREEMENT WITH PLAN OF CARE. Addendum: 10/20/18 at 0816 by CHAITANYA MEMBRENO WNDNU Amended: Links added.
[2018-10-20] MEDS: ENOXAPARIN SODIUM 40 MG/0.4 ML DISP.SYRIN SQ SCH (09:06)
[2018-10-20] MEDS: PAROXETINE HCL 20 MG TABLET PO SCH (09:07)
[2018-10-20] MEDS: PANTOPRAZOLE 40 MG TABLET.DR PO SCH (09:07)
[2018-10-20] MEDS: MULTIVIT W/MINERALS 1 TAB TABLET PO SCH (09:07)
[2018-10-20] MEDS: DIVALPROEX SODIUM 250 MG TABLET.DR PO SCH ×2 (09:07→12:15)
[2018-10-20] MEDS: LEVOTHYROXINE SODIUM 75 MCG TABLET PO SCH (09:08)
[2018-10-20] MEDS: OLANZAPINE 5 MG TABLET PO SCH ×2 (09:08→16:48)
[2018-10-20] MEDS: LamoTRIgine 100 MG TABLET PO SCH (09:08)
[2018-10-20] MEDS: DOCUSATE SODIUM 100 MG CAPSULE PO SCH ×2 (09:08→16:48)
[2018-10-20] MEDS: MEROPENEM 1 G in IV NS 0.9% 100 ML IV SCH ×2 (09:09→21:10)
[2018-10-20] MEDS: IV NS 0.9% 1,000 ML IV PRN (12:21)
--- NOTE | 2018-10-20 14:11 | NUR ---
MS RN NOTES PT MOVED TO 111-1 FOR ISOLATION PRECAUTIONS
[2018-10-20] MEDS: HYDROCODONE/APAP 5/325MG 1 EACH TABLET PO PRN (14:25)
[2018-10-20 16:00] VITALS: BP 107/50
[2018-10-20] MEDS: DIVALPROEX SODIUM 125 MG CAP.SPRINK PO SCH (16:48)
--- NOTE | 2018-10-20 19:05 | NUR ---
RN M/S NOTE PT IS RESTING IN BED AOX1, SPEECH CLEAR, ON 2L O2 VIA NC, NO S/SX OF RESPIRATORY OR CARDIAC DISTRESS, F/C DRAINING TO GRAVITY, LFA #20GWITH NS AT 50ML/HR, SITE IS CLEAN AND DRY, DRESSING INTACT, PATENT FLUSHING WELL, SAFETY MAINTAINED AT ALL TIMES, BED IN LOW LOCKED POSITION, CALL LIGHT WITHIN REACH, WILL CONTINUE TO MONITOR FOR ANY ACUTE CHANGES.
--- NOTE | 2018-10-20 19:10 | NUR ---
MS RN NOTES REPORTED TO PM NURSE FOR INDER. NO S/SX OF DISTRESS NOTED. PT TOLERATED MECH SOFT DIET WELL. ALL NEEDS ATTENDED.
[2018-10-20 20:00] VITALS: BP 109/53
[2018-10-21 04:00] VITALS: BP 99/45
[2018-10-21 07:02] LABS: BASOPHILS % (AUTO) 0.5 % (0.0-2.0); EOSINOPHILS % (AUTO) 1.3 % (0.0-6.0); HEMATOCRIT 28 % (33-45); MEAN CORPUSCULAR HGB CONC 36 g/dl (31.0-36.0); MEAN CORPUSCULAR VOLUME 104 fL (82-100); MONOCYTES # (AUTO) 0.7 /CMM (0.1-1.30); MONOCYTES % (AUTO) 12.4 % (2.0-12.0); NEUTROPHILS # (AUTO) 2.7 /CMM (1.8-8.9); NEUTROPHILS % (AUTO) 48.8 % (43.0-81.0); PLATELET COUNT (AUTO) 227 /CMM (150-450); RED BLOOD CELL COUNT(AUTO) 2.69 MIL/uL (4.0-5.2); WHITE BLOOD COUNT (AUTO) 5.5 K/uL (4.3-11.0)
[2018-10-21 07:43] LABS: CALCIUM, SERUM 9.6 mg/dL (8.5-10.1); CARBON DIOXIDE 29 mmol/L (21-32); CHLORIDE 112 mmol/L (98-107); CREATININE 0.5 mg/dL (0.6-1.3); GLUCOSE 94 mg/dL (74-106); MAGNESIUM 1.9 mg/dL (1.8-2.4); PHOSPHORUS 2.4 mg/dL (2.5-4.9); POTASSIUM 4.3 mmol/L (3.5-5.1); SODIUM SERUM 146 mmol/L (136-145); UREA NITROGEN, BLOOD 22 mg/dL (7-18)
[2018-10-21 08:00] VITALS: BP 103/39
--- NOTE | 2018-10-21 08:00 | NUR ---
MS1/RN AM SHIFT INITIAL NOTES RECEIVED PT AWAKE IN BED, PT A/O X 1, OCCASIONALLY RESPONSE, NO GRIMACING OR ACUTE CHANGE OF CONDITION NOTED. ON 2L O2 VIA N/C SATURATING @ 98%, LUNG SOUNDS CLEAR, RESPIRATIONS EVEN AND UNLABORED. WITH ON GOING IV INFUSION OF NS @ 50CC/HR, IV SITE PATENT WITH NO S/S OF INFECTION. VALENTIN CATHETER INTACT NOTED WITH CESAR COLORED URINE OUTPUT. DVT SLEEVE IN PLACED. PT IS COMFORTABLE AT THIS TIME, SCHEDULED AM MEDS TO BE GIVEN. CL WITHIN REACHED AND SAFETY MAINTAINED. ON GOING MONITORING.
[2018-10-21] MEDS: LamoTRIgine 100 MG TABLET PO SCH (09:37)
[2018-10-21] MEDS: PANTOPRAZOLE 40 MG TABLET.DR PO SCH (09:37)
[2018-10-21] MEDS: MULTIVIT W/MINERALS 1 TAB TABLET PO SCH (09:37)
[2018-10-21] MEDS: DOCUSATE SODIUM 100 MG CAPSULE PO SCH ×2 (09:37→17:04)
[2018-10-21] MEDS: ENOXAPARIN SODIUM 40 MG/0.4 ML DISP.SYRIN SQ SCH (09:37)
[2018-10-21] MEDS: DIVALPROEX SODIUM 250 MG TABLET.DR PO SCH ×2 (09:37→12:52)
[2018-10-21] MEDS: LEVOTHYROXINE SODIUM 75 MCG TABLET PO SCH (09:37)
[2018-10-21] MEDS: OLANZAPINE 5 MG TABLET PO SCH ×2 (09:41→17:04)
[2018-10-21] MEDS: MEROPENEM 1 G in IV NS 0.9% 100 ML IV SCH (09:43)
[2018-10-21] MEDS: PAROXETINE HCL 20 MG TABLET PO SCH (09:46)
[2018-10-21] MEDS ORDERED: NEUTRA PHOS 1 POWD.PACKET PO ONE (11:30)
--- NOTE | 2018-10-21 11:43 | NUR ---
MS1/RN ROUNDS - SPEECH THERAPIST PT SEEN AND EXAMINED BY SPEECH THERAPIST, RECOMMENDED TO CHANGE DIET TO PUREED. PRIMARY MD WILL BE NOTIFIED. MONITORING CONTINUED.
[2018-10-21] MEDS ORDERED: MERO1VIA IV (13:12)
[2018-10-21] MEDS: IV NS 0.9% 1,000 ML IV PRN (13:28)
[2018-10-21] MEDS: ENSURE ENLIVE 237 ML LIQUID (VANILLA) PO SCH ×2 (14:00→18:46)
[2018-10-21 16:00] VITALS: BP 113/60
[2018-10-21] MEDS: DIVALPROEX SODIUM 125 MG CAP.SPRINK PO SCH (17:04)
--- NOTE | 2018-10-21 18:52 | NUR ---
MS1/RN REPORT - BOARD & CARE DISCHARGE REPORT GIVEN TO MICHAEL WATKINS LVN OF [facility]. AWAITING FOR PICC LINE PLACEMENT (CONSENT OBTAINED).
--- NOTE | 2018-10-21 20:00 | NUR ---
MS1/RN REPORT TO TRANSPORT PICC SUCCESSFULLY PLACE ON RIGHT UPPER ARM WITH DOUBLE LUMEN (NAMIBIAN 5, 33CM) PER PICC LINE NURSE OK TO USE. REPORT AND DISCHARGE DOCUMENTS GIVEN TO TRANSPORT PERSONNEL, PERSONAL BELONGINGS RETUNED, INVENTORY LOG SIGNED OFF. PT LEFT UNIT VIA GURNEY IN STABLE CONDITION.
== END 2018-10-21 20:30 | disposition home or self-care (01) | DRG 689 ==
LOC: ER 01:59 → TELE1 04:52 → MEDSG1 09:56
PROVIDERS: ADMIT Student in an Organized Health Care Education/Training Program; ATTEND Student in an Organized Health Care Education/Training Program
PROC: 05HY33Z Insertion of Infusion Device into Upper Vein, Percutaneous Approach (ICD-10-PCS; principal; 2018-10-21)
DX: N39.0 Urinary tract infection, site not specified (principal); G93.41 Metabolic encephalopathy; E44.0 Moderate protein-calorie malnutrition; E87.0 Hyperosmolality and hypernatremia; Z68.1 Body mass index [BMI] 19.9 or less, adult; E86.0 Dehydration; G30.9 Alzheimer's disease, unspecified; F02.80 Dementia in other diseases classified elsewhere, unspecified severity, without behavioral disturbance, psychotic disturbance, mood disturbance, and anxiety; G40.909 Epilepsy, unspecified, not intractable, without status epilepticus; I25.10 Atherosclerotic heart disease of native coronary artery without angina pectoris; B96.89 Other specified bacterial agents as the cause of diseases classified elsewhere; Z88.0 Allergy status to penicillin; Z16.12 Extended spectrum beta lactamase (ESBL) resistance; R79.89 Other specified abnormal findings of blood chemistry; E03.9 Hypothyroidism, unspecified; F29 Unspecified psychosis not due to a substance or known physiological condition; F31.9 Bipolar disorder, unspecified; I70.90 Unspecified atherosclerosis; E88.09 Other disorders of plasma-protein metabolism, not elsewhere classified; R91.8 Other nonspecific abnormal finding of lung field; K21.9 Gastro-esophageal reflux disease without esophagitis; M85.80 Other specified disorders of bone density and structure, unspecified site
CPT/HCPCS: 36415; 36569; 70450-TC; 71045-TC; 80048-TC; 80061-TC; 80076-TC; 81000-TC; 83605-TC; 83735-TC; 84100-TC; 84443-TC; 84484-TC; 85025-TC; 85730-TC; 87040-TC; 87081-TC; 87086-TC; 87186-TC; 92526; 92611-TC; G0378; J1650; J2185; J7030